=== PATIENT | female | born 1975 | race Caucasian/White ===

== ENCOUNTER → 2021-01-17 13:00 | Outpatient (CLI) | payer OTHER, SELFPAY ==
--- NOTE | ~2021-01-17 | MR_ITS ---
EXAMINATION: MR brain/brain stem wo con DATE: 01/17/2021 14:10 INDICATION: Unspecified visual disturbance. TECHNIQUE: Magnetic resonance imaging (MRI) of the brain and brainstem was performed without intraven ous contrast. Sequences included sagittal and axial T1-weighted FSE, axial diffusion-weighted FS EPI, axial T2*-weighted GRE, axial T2-weighted FLAIR Propeller, and axial T2-weighted Propeller. Apparent diffusion coefficient (ADC) maps were created. COMPARISON: None. FINDINGS: There is no intracranial hemorrhage, acute infarction, or abnormal intracranial mass lesion . The ventricles are normal in size. The paranasal sinuses are clear. The mastoid air cells are adiel l. The orbits are normal. IMPRESSION: 1. Normal brain. Reviewed, dictated and finalized at location A. IMPRESSION: 1. Normal brain.
== END ==
PROVIDERS: PCP Family Medicine; Visit Provider Family Medicine
DX: H53.9 Unspecified visual disturbance (principal)
CPT/HCPCS: 70551

== ENCOUNTER 2021-02-14 02:29 | Day surgery (SDC) | payer OTHER, SELFPAY ==
[2021-02-03 13:36] VITALS: BMI 26.4
[2021-02-14 08:20] VITALS: BP 113/78; PULSE 86; RESP 18; TEMP 35.5; O2SAT 100; BMI 26.4
[2021-02-14] MEDS: LACTATED RINGERS 1,000 ML 150 ML IV CONT (08:30)
--- NOTE | 2021-02-14 08:47 | P.PNAN_ITS ---
Anes - Initial Pre Proc Eval Procedure: Operation Date: 02/14/21 09:30 Proposed Procedures p Esophagogastroduodenoscopy - Lazaro Chirinos MD Date/Time: 02/14/21 08:47 Surgeon: Lazaro Chirinos MD Pre Op Diagnosis: epigastric pain Patient Data Age: 46 Gender: F Height: 1.52 m Weight: 61.3 kg Last Vital Signs Temp 35.5 C L 02/14/21 08:20 Pulse 86 02/14/21 08:20 Resp 18 02/14/21 08:20 BP 113/78 02/14/21 08:20 Pulse Ox 100 02/14/21 08:20 Allergies Allergy/AdvReac Type Severity Reaction Status Date / Time metronidazole Allergy Unknown Rash Verified 02/14/21 08:19 Home Medications Medication Instructions Recorded Confirmed Type spironolactone 100 mg tablet 100 mg PO DAILY 12/07/19 02/14/21 History cholecalciferol (vitamin D3) 50 50 mcg PO DAILY 12/10/20 02/14/21 History mcg (2,000 unit) capsule omeprazole 40 mg capsule,delayed See Rx Instructions .ROUTE 12/30/20 02/14/21 Rx release .COMPLEX #30 cap Patient hx anesthesia problems: none Family hx anesthesia problems: none Results Review: All pre-operative results and documents have been reviewed as part of the pre-operative evaluation. [facility] Past Medical History Medical History Cholecystectomy planned Epigastric abdominal pain Fallopian tube disorder GERD (gastroesophageal reflux disease) Screening, lipid Vision abnormalities Surgical History Surgical History History of dilation and curettage Hx of tonsillectomy Family History Family History Father Hypertension Family history of type 2 diabetes mellitus Family history of heart disease in male family member before age 55 Patient's father is Mother Family history of malignant neoplasm of ovary Patient's mother is Other Diabetes mellitus Family history of seizure disorder Social History Social History Smoking status: Never smoker Alcohol intake: current Alcohol use details: twice a month Substance use: never Living arrangements: with family Gender identity (if verbalized by the patient): Female Spiritual care concerns: No Anes - Eval Final PreProcedure Day of Procedure 02/14/21 08:47 Patient weight: overweight Heart: regular rate and rhythm Lungs: clear to auscultation Airway: Mallampati scale class II Neurological: alert and oriented Last oral intake: >/= 8 hours ASA classification: II Emergent: no Anesthetic plan: proceed Anesthesia type and monitoring: general GIVS and standard monitoring Results Review: All pre-operative results and documents have been reviewed as part of the pre-operative evaluation. Informed Consent: The patient's anesthetic plan and its attendant risks and benefits were discussed with the patient/family/POA. Questions were solicited and answers provided to the satisfaction of the patient/family/POA.
--- NOTE | 2021-02-14 08:56 | PM.HPGS ---
History of Present Illness History of Present Illness Consent: Risks, benefits, and alternatives have been discussed and questions answered. Patient agrees to proceed with procedure. Chief complaint: epigastric pain Narrative: Yolanda Mondragon is a 46 year old female with intermittent epigastric pain and bloating despite using omeprazole, better after watching her diet. Had cholecystectomy years ago. Review of Systems Constitutional: Constitutional: Denies headache(s) and Denies weakness Eyes: Eyes: Denies blurry vision ENT: Reports Normal hearing present, Denies headache(s) and Denies neck pain Cardiovascular: Cardiovascular: Denies chest pain and Denies dyspnea Respiratory: Respiratory: Denies dyspnea Gastrointestinal: Gastrointestinal: Reports no additional gastrointestinal complaints Genitourinary: Genitourinary: Denies dysuria Musculoskeletal: Musculoskeletal: Denies neck pain Integumentary/Breasts: Skin/Breast: Denies dry skin Neurologic: Reports Normal hearing present, Denies headache(s) and Denies weakness Psychiatric: Psychiatric: Denies anxiety Endocrine: Endocrine: Denies change in body appearance Hematologic/Lymphatic: Hematologic/Lymphatic: Denies easy bleeding Allergic/Immunologic: Allergic/Immunologic: Denies urticaria PMFSH Past Medical History Medical History Cholecystectomy planned Epigastric abdominal pain Fallopian tube disorder GERD (gastroesophageal reflux disease) Screening, lipid Vision abnormalities Surgical History Surgical History History of dilation and curettage Hx of tonsillectomy Family History Family History Father Hypertension Family history of type 2 diabetes mellitus Family history of heart disease in male family member before age 55 Patient's father is Mother Family history of malignant neoplasm of ovary Patient's mother is Other Diabetes mellitus Family history of seizure disorder Social History Social History Smoking status: Never smoker Alcohol intake: current Alcohol use details: twice a month Substance use: never Living arrangements: with family Gender identity (if verbalized by the patient): Female Spiritual care concerns: No Meds Home Medications and Allergies Home Medications Medication Instructions Recorded Confirmed Type spironolactone 100 mg tablet 100 mg PO DAILY 12/07/19 02/14/21 History cholecalciferol (vitamin D3) 50 50 mcg PO DAILY 12/10/20 02/14/21 History mcg (2,000 unit) capsule omeprazole 40 mg capsule,delayed See Rx Instructions .ROUTE 12/30/20 02/14/21 Rx release .COMPLEX #30 cap Allergies Allergy/AdvReac Type Severity Reaction Status Date / Time metronidazole Allergy Unknown Rash Verified 02/14/21 08:19 Vital Signs Vital Signs - 24 hr 02/14/21 08:20 Temperature 96 F L Pulse Rate 86 Respiratory Rate 18 Blood Pressure 113/78 Pulse Oximetry 100 Exam Const: General: comfortable and no acute distress HENMT: General nose exam: Normal nares present Eyes: General: appearance normal, both eyes and all related structures Neck: Neck: no JVD Resp: Auscultation: clear to auscultation bilaterally Cardio: Rate: regular rate Rhythm: regular rhythm GI: Inspection: non-distended GI Palp: Yes Soft to palpation Skin: General skin exam: normal color Neuro: General: gait normal Speech: normal speech Extrem: General: normal to inspection Psych: Mental Status: mental status grossly normal Assessment and Plan Assessment and plan (1) Epigastric abdominal pain: Code(s): R10.13 - Epigastric pain Status: Acute Assessment and Plan: egd with bx
[2021-02-14 09:08] VITALS: BP 103/68; PULSE 92; RESP 19; O2SAT 99
[2021-02-14 09:18] VITALS: BP 104/76; PULSE 85; RESP 13; O2SAT 100
[2021-02-14 09:28] VITALS: BP 106/75; PULSE 74; RESP 18; O2SAT 100
== END 2021-02-14 09:55 | disposition home or self-care (01) ==
PROVIDERS: PCP Family Medicine; Visit Provider Internal Medicine Gastroenterology
PROC: 0DJ08ZZ Inspection of Upper Intestinal Tract, Via Natural or Artificial Opening Endoscopic (ICD-10-PCS; CPT 43235; principal; 2021-02-14 09:30)
DX: R10.13 Epigastric pain (principal); K31.7 Polyp of stomach and duodenum; K21.9 Gastro-esophageal reflux disease without esophagitis
CPT/HCPCS: 43239; 88305; J2001; J2704; J7120

== ENCOUNTER 2023-11-11 09:54 | Emergency (ER) | payer BC, SELFPAY ==
--- NOTE | ~2023-11-11 | CT_ITS ---
EXAMINATION: CT brain wo con DATE: 11/11/2023 10:49 INDICATION: Dizziness. Vertigo. TECHNIQUE: Computed tomography (CT) of the head was performed without intravenous contrast. The mA wa s adjusted according to patient size. Iterative reconstruction technique was employed. The dose-lengt h product was 605.33 mGy-cm. COMPARISON: Brain MRI 01/17/2021 FINDINGS: There is no intracranial hemorrhage, acute infarction, or abnormal intracranial mass lesion . The ventricles are normal in size. The orbits are normal. The paranasal sinuses are clear. The mast oid air cells are normal. IMPRESSION: 1. Normal brain. Reviewed, dictated and finalized at location A. IMPRESSION: 1. Normal brain.
[2023-11-11 10:02] VITALS: BP 135/87; PULSE 80; RESP 16; TEMP 36.6; O2SAT 100
--- NOTE | 2023-11-11 10:37 | ECG_ITS ---
Test Date: 2023-11-11 11:01:04 Measurements Intervals Kell Rate: 79 P: 27 NV: 143 QRS: 0 QRSD: 83 T: 15 QT: 365 QTc: 419 Interpretive Statements SINUS RHYTHM NORMAL ELECTROCARDIOGRAM No previous ECG available for comparison Electronically Signed On 11-12-2023 13:28:08 CDT by Magdaleno Guillermo M.D.
--- NOTE | 2023-11-11 10:41 | ED.DIZZY ---
HPI - Dizziness General Chief Complaint: Dizziness Stated Complaint: vertigo Time Seen by Provider: 11/11/23 09:59 History of Present Illness HPI Narrative: 48-year-old female with a history of vertigo presents to the emergency room dilation dizziness. Patient states that she has been experiencing dizziness for 3 days. Dizziness is worse with movements of her head, associated with nausea and light sensitivity. Patient states she took a meclizine this morning with improvement of her symptoms. Denies headache. Denies head injury or trauma. Denies chest pain, shortness of breath, palpitations. No vision or hearing changes Related Data Home Medications Medication Instructions Recorded Confirmed spironolactone 100 mg tablet 100 mg PO DAILY 12/07/19 03/22/23 meclizine 12.5 mg tablet 12.5 mg PO BID 02/04/23 03/22/23 cholecalciferol (vitamin D3) 50 100 mcg PO DAILY 03/22/23 03/22/23 mcg (2,000 unit) capsule Allergies Allergy/AdvReac Type Severity Reaction Status Date / Time metronidazole Allergy Unknown Rash Verified 03/22/23 14:35 Review of Systems Review of Systems: ROS unremarkable except HPI PMFSH Past Medical History Medical History BMI 25.0-25.9,adult Cholecystectomy planned Encounter for prophylactic removal of fallopian tube(s) Epigastric abdominal pain Fallopian tube disorder GERD (gastroesophageal reflux disease) Need for vaccination Screening, lipid Vertigo Vision abnormalities Surgical History Surgical History History of dilation and curettage Hx of cholecystectomy Hx of tonsillectomy Family History Family History Father Hypertension Family history of type 2 diabetes mellitus Family history of heart disease in male family member before age 55 Patient's father is Diabetes mellitus Mother Family history of malignant neoplasm of ovary Patient's mother is Sibling No problems noted. Other Family history of seizure disorder Social History Social History Smoking status: Never smoker Second hand tobacco smoke exposure: Yes Alcohol intake: current Alcohol use details: twice a month Substance use: never Substance use type: does not use Do You Feel Safe in your Home?: Yes Lack of Transportation: No Lack of Food: Never True Current Housing: I Have Housing Concerned About Future Housing: No Difficulty Paying Gas/Electric Bills: No Difficulty Paying for Meds: No Currently Unemployed: No Education: Bachelor's Degree Difficulty w/ Childcare or Family Care: No Living arrangements: with family Occupation/Education: occupation Additional occupation/education 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 Gender identity (if verbalized by the patient): Female Spiritual care concerns: No Exam Narrative: GENERAL: Well-appearing, well-nourished, no physical limitations, and in no acute distress. HEAD: Normocephalic, atraumatic. EYES: Conjunctivae normal, PERRLA and EOMI. horizontal nystagmus ENT: External nose normal, Nares clear, no rhinorrhea or epistaxis. External ears normal, bilateral TMs normal bilaterally NECK: Supple. CHEST: Clear to auscultation. No respiratory distress. No wheezes rales or rhonchi. HEART: Regular rate and rhythm. No murmur heard. Normal peripheral pulses. EXTREMITIES: Normal range of motion. No edema. No clubbing or cyanosis SKIN: Warm, dry, no rash. No noted wounds NEURO: No focal deficits. Alert and oriented x3. MAEW. CN's II-XI intact bilaterally, normal gait PSYCH: Cooperative. Normal mood and affect. Course Vital Signs Vital signs: Vital Signs Temperature 36.6 C 11/11/23 10:02 Pulse Rate 80 11/11/23 10:02 Re
[2023-11-11 11:01] LABS: Basophils Percent Auto 0.5 % (0.2-1.2); Eosinophils Absolute Auto 0.1 K/mm3 (0-0.3); Eosinophils Percent Auto 1.7 % (0-4.4); Hematocrit 42.3 % (37.0-47.0); Hemoglobin 14.1 g/dL (12.0-15.0); Immature Granulocyte Absolute 0.03 K/mm3 (0.00-0.031); Immature Granulocyte Percent A 0.4 % (0-0.5); Lymphocytes Absolute Auto 2.63 K/mm3 (0.9-3.2); Lymphocytes Percent Auto 31.1 % (18.3-44.2); Mean Corpuscular HGB Conc 33.3 g/dl (32-36); Mean Corpuscular Hemoglobin 28.5 pg (26-34); Mean Corpuscular Volume 85.5 fl (80-100); Mean Platelet Volume 9.1 fl (7.4-10.4); Monocytes Absolute Auto 0.6 K/mm3 (0.1-0.6); Monocytes Percent Auto 7.3 % (2.6-8.5); Platelet Count Result 241 k/mm3 (150-375); Red Blood Count 4.95 M/mm3 (4.2-5.4); Red Cell Distribution Width 12.2 % (11.5-14.5); White Blood Count 8.5 K/mm3 (4.5-10.0)
[2023-11-11] MEDS: SODIUM CHLORIDE 0.9% IV 1,000 ML 999 ML IV CONT (11:01)
[2023-11-11] MEDS: diphenhydrAMINE HCl INJ 50 MG/ML VIAL 25 MG IV PUSH (11:02)
[2023-11-11] MEDS: METOCLOPRAMIDE HCL INJ 10 MG/2 ML VIAL IV PUSH (11:02)
[2023-11-11 11:14] LABS: Alanine Aminotransferase 23 U/L (6-35); Albumin Level 4.9 g/dL (3.5-5.1); Alkaline Phosphatase 99 U/L (38-126); Anion Gap 11 mmol/L (4-12); Aspartate Amino Transferase 30 U/L (14-36); Bilirubin,Total 0.4 mg/dL (0.2-1.3); Blood Urea Nitrogen 10 mg/dL (7-17); Calcium 9.9 mg/dL (8.4-10.2); Carbon Dioxide 27 mmol/L (22-30); Chloride 100 mmol/L (98-107); Estimated CRCL calculation 68 ml/min; Estimated Glomerular Filt Rate > 60; Glucose 99 mg/dL (65-110); Potassium 4.1 mmol/L (3.4-5.0); Sodium 138 mmol/L (137-145)
[2023-11-11 11:22] VITALS: BP 153/87; PULSE 104; RESP 16; TEMP 36.4; O2SAT 98
[2023-11-11 11:27] LABS: Troponin I < 0.012 ng/mL (0.000-0.034)
== END 2023-11-11 11:56 | disposition home or self-care (01) ==
PROVIDERS: Emergency Provider Nurse Practitioner Family; PCP Family Medicine
DX: R42 Dizziness and giddiness (principal); K21.9 Gastro-esophageal reflux disease without esophagitis; Z90.49 Acquired absence of other specified parts of digestive tract; Z77.22 Contact with and (suspected) exposure to environmental tobacco smoke (acute) (chronic)
CPT/HCPCS: 36415; 70450; 80053; 84484; 85025; 93005; 96361; 96374; 96375; 99284; J1200; J2765; J7030